=== PATIENT | female | born 1975 | race Caucasian/White ===

== ENCOUNTER 2023-10-01 07:40 | Outpatient (CLI) | payer OTHER, SELFPAY ==
--- NOTE | ~2023-10-01 | CT_ITS ---
EXAMINATION: CTA brain DATE: 10/01/2023 08:29 INDICATION: Other malformations of cerebral vessels. TECHNIQUE: Computed tomographic angiography (CTA) of the head was performed without and with 100 mL O mnipaque-350 intravenous contrast. Automated exposure control and iterative reconstruction technique were employed. The dose-length product was 993.86 mGy-cm. Maximum intensity projection 3D reconstruc tions were created. Volume-rendered 3D reconstructions of the intracranial arteries were created by raphael keyes technologist on a separate workstation. COMPARISON: None. FINDINGS: There is no intracranial hemorrhage, acute infarction, or abnormal intracranial mass lesion . The ventricles are normal in size. The orbits are normal. There is mucosal thickening in the parana amandeep sinuses. The mastoid air cells are normal. Left vertebral artery is dominant. There is no signifi cant stenosis of basilar artery or the posterior cerebral arteries. There is no significant stenosis of the intracranial internal carotid arteries or anterior or middle cerebral arteries. Anterior commu nicating artery is normal. The posterior communicating arteries are normal. In the right frontal lobe , there is a tangle of blood vessels supplied by the right anterior cerebral artery and right middle cerebral artery, consistent with an arteriovenous malformation. 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 IMPRESSION: 1. 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 Reviewed, dictated and finalized at location A. D MATE
== END 2023-10-01 07:41 | disposition home or self-care (01) ==
PROVIDERS: PCP Physician Assistant; Visit Provider Physician Assistant
DX: Q28.3 Other malformations of cerebral vessels (principal); I60.9 Nontraumatic subarachnoid hemorrhage, unspecified; Z87.898 Personal history of other specified conditions; R93.0 Abnormal findings on diagnostic imaging of skull and head, not elsewhere classified
CPT/HCPCS: 70496; Q9967